=== PATIENT | female | born 1960 | race Caucasian/White ===

== ENCOUNTER 2018-06-29 07:01 | Day surgery (SDC) | payer OTHER ==
[2018-06-26 17:54] VITALS: BMI 27.1
[~2018-06-29 07:01] MED LIST: TOBRA 0.3%/DEXAMETH 0.1% OPHTHALMIC SUSP 2.5 ML BTL TP ONE
[2018-06-29 07:19] VITALS: TEMP 98
[2018-06-29] MEDS ORDERED: TROPICAMIDE 1% OPHTH SOLN 15 ML BOTTLE ONE (07:22)
[2018-06-29] MEDS ORDERED: CYCLOPENTOLATE HCL 1% OPHTH SOLN 2 ML BOTTLE ONE (07:22)
[2018-06-29] MEDS ORDERED: DICLOFENAC SODIUM 0.1% OPHTHALMIC 2.5ML BOTTLE ONE (07:22)
[2018-06-29] MEDS ORDERED: PHENYLEPHRINE 2.5% OPHTH SOLN 15 ML BOTTLE ONE (07:22)
[2018-06-29] MEDS ORDERED: MOXIFLOXACIN HCL 0.5% OPHTHALMIC 3 ML BOTTLE ONE (07:22)
[2018-06-29] MEDS ORDERED: MOXIFLOXACIN HCL 0.5% OPHTHALMIC 3 ML BOTTLE OS ONE ×3 (07:40→08:00)
[2018-06-29] MEDS ORDERED: DICLOFENAC SODIUM 0.1% OPHTHALMIC 2.5ML BOTTLE OS ONE ×3 (07:40→08:00)
[2018-06-29] MEDS ORDERED: TROPICAMIDE 1% OPHTH SOLN 15 ML BOTTLE OS ONE ×3 (07:40→08:00)
[2018-06-29] MEDS ORDERED: CYCLOPENTOLATE HCL 1% OPHTH SOLN 2 ML BOTTLE OS ONE ×3 (07:40→08:00)
[2018-06-29] MEDS ORDERED: PHENYLEPHRINE 2.5% OPHTH SOLN 15 ML BOTTLE OS ONE ×3 (07:40→08:00)
[2018-06-29] MEDS ORDERED: CHONDROITIN SU A/HYALUR SOD 1 KIT ONE ×2 (07:51→12:29)
[2018-06-29] MEDS ORDERED: TOBRA 0.3%/DEXAMETH 0.1% OPHTHALMIC SUSP 2.5 ML BTL ONE (07:57)
[2018-06-29] MEDS ORDERED: LIDOCAINE HCL/PF 1% SDV 5ML VIAL ONE (07:58)
[2018-06-29] MEDS ORDERED: BSS (NA/CA/MG/K) BALANCED SALT SOLUTION OPHTH SOLN 15 ML BOTTLE ONE (07:58)
[2018-06-29] MEDS ORDERED: TETRACAINE 0.5% OPHTH SOLN 2 ML BOTTLE ONE (07:58)
[2018-06-29] MEDS ORDERED: MIDAZOLAM HCL 2 MG/2 ML SINGLE DOSE VIAL ONE (09:38)
[2018-06-29] MEDS ORDERED: TETRACAINE 0.5% OPHTH SOLN 2 ML BOTTLE OS ONE (09:40)
[2018-06-29] MEDS ORDERED: POVIDONE-IODINE 5% OPHTHALMIC PREP 30 ML SOLUTION OS ONE (09:43)
[2018-06-29] MEDS ORDERED: LIDOCAINE HCL 1% PRESERVATIVE FREE - 30ML VIAL IO ONE (09:52)
[2018-06-29] MEDS ORDERED: BSS (NA/CA/MG/K) BALANCED SALT SOLUTION OPHTH SOLN 15 ML BOTTLE OS ONE (09:52)
[2018-06-29] MEDS ORDERED: CHONDROITIN SU A/HYALUR SOD 1 KIT IO ONE (09:52)
[2018-06-29] MEDS ORDERED: EPINEPHrine/PF 1 MG/1 ML (1:1,000) AMPULE SQ ONE (10:05)
[2018-06-29] MEDS ORDERED: TOBRA 0.3%/DEXAMETH 0.1% OPHTHALMIC SUSP 2.5 ML BTL TP ONE (10:24)
[2018-06-29 11:28] VITALS: BP 98/63; PULSE 61
--- NOTE | 2018-06-29 20:59 | OP ---
DATE OF OPERATION: DATE OF DICTATION: 06/29/2018 SURGEON: Blaine Salazar MD PREOPERATIVE DIAGNOSIS: Cataract, left eye. POSTOPERATIVE DIAGNOSIS: Cataract, left eye. PROCEDURE: Phacoemulsification of cataract left eye with in bag placement of SN6AT1 with 21.5 diopter intraocular lens. ANESTHESIA: Local. DESCRIPTION OF PROCEDURE: The patient was brought to the operating room, and the left eye was prepped and draped in the usual sterile fashion for ophthalmic surgery after placing tetracaine eye drops. The microscope was swung into position, and a 2.75 keratome was used to enter the anterior chamber, which was filled with 0.5 mL of preservative-free lidocaine and Viscoelastic. A side port was made at approximately 5 o'clock position, and the cystotome and Utrata forceps were used to make a continuous circular capsulorrhexis. Phacoemulsification was carried out in a [id number] technique after using BSS for hyrodissection and hydrodelineation and rotating the nucleus freely. IA was used to remove residual cortical material from the capsular bag, which was found to be intact and which was injected. The SN6AT1 21.5 diopter IOL in the bag dialed into position using the Sinskey hook. IA was used to remove residual viscoelastic from the capsular bag and anterior chamber. BSS was used to perform hydration of the corneal lip wounds, which were found to be watertight. A contact lens soaked in Tobradex solution for approximately 10 minutes was then draped on the cornea. The eye was patched and shielded. The patient was transferred to the recovery room in a stable condition having tolerated the procedure well. BLAINE SALAZAR M.D. [id number]
== END 2018-06-29 11:29 | disposition home or self-care (01) ==
LOC: JASU-SURG 07:01
PROVIDERS: ATTEND Ophthalmology
PROC: 08RK3JZ Replacement of Left Lens with Synthetic Substitute, Percutaneous Approach (ICD-10-PCS; principal; 2018-06-29 09:00)
DX: H26.9 Unspecified cataract (principal)

== ENCOUNTER → 2021-01-08 | Day surgery (SDC) | payer OTHER ==
[2021-01-05 15:43] VITALS: BMI 27.3
[~2021-01-08] MED LIST changes: +BUPIVACAINE HCL/EPINEPHRINE/PF 30 ML VIAL IJ ONE; +BUPIVACAINE HCL/PF 0.5% (5 MG/ML) 30 ML VIAL IJ ONE; +DEXAMETHASONE SOD PHOSPHATE 10 MG/1 ML VIAL ONE; +MIDAZOLAM HCL 2 MG/2 ML SINGLE DOSE VIAL ONE; -TOBRA 0.3%/DEXAMETH 0.1% OPHTHALMIC SUSP 2.5 ML BTL TP ONE
[2021-01-08 10:24] VITALS: BP 99/63; PULSE 68; TEMP 97.1
== END | disposition home or self-care (01) ==
LOC: FASU 08:57
PROVIDERS: ATTEND Orthopaedic Surgery
PROC: 0LQ14ZZ Repair Right Shoulder Tendon, Percutaneous Endoscopic Approach (ICD-10-PCS; principal; 2021-01-08)
DX: M75.101 Unspecified rotator cuff tear or rupture of right shoulder, not specified as traumatic (principal); Z53.09 Procedure and treatment not carried out because of other contraindication; R21 Rash and other nonspecific skin eruption
CPT/HCPCS: J1100

== ENCOUNTER 2021-01-19 06:07 | Day surgery (SDC) | payer OTHER ==
[2021-01-19 06:47] VITALS: BMI 27.1
[2021-01-19] MEDS ORDERED: MIDAZOLAM HCL 2 MG/2 ML SINGLE DOSE VIAL ONE (07:25)
[2021-01-19] MEDS ORDERED: ROPIVACAINE HCL 0.5% 30ML VIAL ONE (07:25)
[2021-01-19] MEDS ORDERED: BUPIVACAINE HCL/EPINEPHRINE/PF 30 ML VIAL IJ ONE (07:35)
[2021-01-19] MEDS ORDERED: PROPOFOL 20 ML ONE (08:08)
[2021-01-19] MEDS ORDERED: KETOROLAC TROMETHAMINE 30 MG/1 ML VIAL ONE (09:49)
[2021-01-19] MEDS ORDERED: ONDANSETRON 4 MG/2 ML VIAL ONE (09:49)
[2021-01-19] MEDS ORDERED: DEXAMETHASONE SOD PHOSPHATE 4 MG/1 ML VIAL ONE (09:49)
[2021-01-19] MEDS ORDERED: ceFAZolin SODIUM 1 GM VIAL ONE (09:49)
[2021-01-19] MEDS ORDERED: LIDOCAINE HCL 2% JELLY (5 ML/TUBE) ONE (09:49)
[2021-01-19] MEDS ORDERED: PROMETHAZINE HCL 25 MG/1 ML VIAL IVPUSH PRN (11:47)
[2021-01-19] MEDS ORDERED: oxyCODONE HCL 5 MG TABLET PO PRN ×2 (11:47)
[2021-01-19] MEDS ORDERED: ONDANSETRON 4 MG/2 ML VIAL IVPUSH PRN (11:47)
[2021-01-19 15:16] VITALS: BP 98/56; PULSE 77; TEMP 97.8
== END 2021-01-19 15:10 | disposition home or self-care (01) ==
LOC: FASU 06:07
PROVIDERS: ATTEND Orthopaedic Surgery
PROC: 0LQ14ZZ Repair Right Shoulder Tendon, Percutaneous Endoscopic Approach (ICD-10-PCS; principal; 2021-01-19 08:44)
PROC: 0RNJ4ZZ Release Right Shoulder Joint, Percutaneous Endoscopic Approach (ICD-10-PCS; 2021-01-19 08:44)
PROC: 0RBJ4ZZ Excision of Right Shoulder Joint, Percutaneous Endoscopic Approach (ICD-10-PCS; 2021-01-19 08:44)
DX: M75.121 Complete rotator cuff tear or rupture of right shoulder, not specified as traumatic (principal); M66.821 Spontaneous rupture of other tendons, right upper arm; M94.211 Chondromalacia, right shoulder; M65.811 Other synovitis and tenosynovitis, right shoulder; M75.51 Bursitis of right shoulder; M24.111 Other articular cartilage disorders, right shoulder
CPT/HCPCS: 73030-TC-RT-FY; 88304-TC; 94760

== ENCOUNTER 2024-04-21 19:40 | Emergency (ER) | payer OTHER ==
[2024-04-21 19:50] VITALS: BP 116/71; PULSE 75; RESP 16; TEMP 98.7; BMI 28.0
[2024-04-21] MEDS ORDERED: diazePAM 2 MG TABLET ONE (20:38)
[2024-04-21] MEDS ORDERED: KETOROLAC TROMETHAMINE 15 MG/ML VIAL ONE (20:38)
[2024-04-21] MEDS ORDERED: LIDOCAINE 4% PATCH TP ONE (20:38)
[2024-04-21] MEDS: diazePAM 2 MG TABLET PO ONE (20:44)
[2024-04-21] MEDS: KETOROLAC TROMETHAMINE 15 MG/ML VIAL IM ONE (20:44)
[2024-04-21] MEDS: diazePAM 5 MG TABLET PO ONE (20:44)
[2024-04-21] MEDS: LIDOCAINE 4% PATCH TP ONE (20:44)
[2024-04-21] MEDS ORDERED: LIDOCAINE PATCH REMOVAL MC SCH (22:00)
== END 2024-04-21 21:42 | disposition home or self-care (01) ==
LOC: JERFT 19:40
PROC: 3E0233Z Introduction of Anti-inflammatory into Muscle, Percutaneous Approach (ICD-10-PCS; principal; 2024-04-21)
DX: S16.1XXA Strain of muscle, fascia and tendon at neck level, initial encounter (principal); X58.XXXA Exposure to other specified factors, initial encounter
CPT/HCPCS: 99284-25